=== PATIENT | male | born 1965 | race Two or more races ===

== ENCOUNTER 2025-01-14 08:22 | Emergency (ER) | payer MEDICAID, SELFPAY ==
[2025-01-14] VITALS (7 sets, daily range): BP systolic 121–211; BP diastolic 74–144; PULSE 77–94; RESP 13–99; TEMP 36.4–36.7; O2SAT 95–99; BMI 24.3
--- NOTE | 2025-01-14 08:24 | XR_ITS ---
Examination: CT brain head without contrast. 2-D sagittal coronal reconstructions Date and time of exam:January 06, 2025, 0828 hours. INDICATIONS: Focal neurologic deficit today CTDI: vol (mGy):48.7 DLP: (mGycm):980 Technique: Multiple CT axial sections of the brain have been obtained, 5 mm slice thickness. Contrast has not been administered. 2-D sagittal, coronal reconstructions have been obtained Low dose protocols were performed. One or more of the following dose reduction techniques were used; automated exposure control, adjustment of the mA and/or KV according to patient size, use of iterative reconstruction technique. Findings: No significant ventricular enlargement. 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 Fourth ventricle is midline. Cranial vault intact. Impression: Suspicious for small area of hemorrhage in the medial left temporal lobe, recommend short-term follow-up CT brain scan
--- NOTE | 2025-01-14 08:24 | EKG_ITS ---
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
--- NOTE | 2025-01-14 08:24 | XR_ITS ---
Examination: CTA carotids with intravenous contrast CTA brain, head with intravenous contrast. 2-D sagittal, coronal reconstructions. 3-D reconstructions. Exam date and time: January 06, 2025, 0833 hours INDICATIONS: Left-sided body weakness tremors, stroke alert, symptoms beginning this morning CTDI: vol (mGy) 96.2 DLP: (mGycm) 489 Technique: Multiple CTA axial brain, head carotid images post intravenous contrast injection 75 cc, [id number]. 2-D sagittal, coronal reconstructions. 3-D reconstructions, 3-D post processing including vascular maximum intensity projection images. Low dose protocols were performed. One or more of the following dose reduction techniques were used; automated exposure control, adjustment of the mA and/or KV according to patient size, use of iterative reconstruction technique. Findings: Heavy calcification right carotid bifurcation, 10-30% stenosis origin right internal carotid artery No significant left carotid artery stenoses in the neck Dominant left vertebral artery with no critical vertebral artery stenoses in the neck Intracranial vertebral arteries, basilar artery posterior cerebral branches fill with no large vessel occlusions Mild calcification juxtasellar portions internal carotid arteries M1 segments middle cerebral arteries middle cerebral artery trifurcation vessels anterior cerebral arteries fill with no large vessel occlusions IMPRESSION: No significant neck arterial stenoses No cerebral large vessel arterial occlusions or thrombus
--- NOTE | 2025-01-14 08:26 | PD.EDNEURO ---
Neuro Symptoms Deficit-RME/HPI General Chief Complaint: Neuro Symptoms/Deficit Stated Complaint: HEADACHE LEFT SIDE WEAKNESS Time Seen by Provider: 01/14/25 08:24 Source: patient Arrival date/time: 01/14/25 08:22 patient seen immediately in the ambulance bay on arrival Mode of arrival: EMS Limitations: no limitations RME / HPI RME / HPI Narrative: Patient is a 59-year-old male with a history of end-stage renal disease at dialysis morning and 30 minutes ago patient had onset of left-sided weakness in the upper and lower extremities. He has had a history of TIA in the past. He has a history of hypertension, diabetes and anemia. Onset (ago): minute(s) Last Observed Normal: 08:00 Timing confirmed by: other (Dialysis center staff) Location: left arm and left leg History of same: No Severity: mild Quality: weak Relieving factors: none Exacerbating factors: none Context: sudden onset Associated symptoms: headaches Treatments Prior to Arrival: none Related Data Allergies Allergy/AdvReac Type Severity Reaction Status Date / Time No Known Allergies Allergy Verified 01/14/25 09:06 Review of Systems Review of Systems Systems Reviewed: All systems reviewed, normal except as documented Constitutional Constitutional: Reports headache(s) and Reports weakness Eyes Eyes: Reports system reviewed and no additional complaints, except as documented ENT Ears, Nose, Mouth, and Throat: Reports system reviewed and no additional complaints, except as documented and Reports headache(s) Cardiovascular Cardiovascular: Reports system reviewed and no additional complaints, except as documented Respiratory Respiratory: Reports system reviewed and no additional complaints, except as documented Gastrointestinal Gastrointestinal: Reports system reviewed and no additional complaints, except as documented Genitourinary Genitourinary: Reports system reviewed and no additional complaints, except as documented Musculoskeletal Comments: Bruce tonic jerking in the upper and lower extremities Neurologic Neurologic: Reports headache(s) and Reports weakness Psychiatric Psychiatric: Reports system reviewed and no additional complaints, except as documented Endocrine Endocrine: Reports system reviewed and no additional complaints, except as documented Hematologic/Lymphatic Hematologic/Lymphatic: Reports system reviewed and no additional complaints, except as documented Comments: History of anemia Allergic/Immunologic Allergic/Immunologic: Reports system reviewed and no additional complaints, except as documented Past Medical History Past Medical History NEUROLOGIC: Positive Neurological Disorders and Transient Ischemic Attacks (TIA) CARDIAC: Positive Hypertension GENITOURINARY: Positive Chronic Kidney Disease and Dialysis ENDOCRINE: Positive Diabetes Mellitus Type 2 HEMATOLOGIC: Positive Anemia Surgical History OTHER SURGICAL HX: Left AV fistula Social History SMOKING STATUS: Never smoker SUBSTANCE USE: does not use ALCOHOL: Never Travel History EBOLA RISK: No ED Exam General Limitations: Present no limitations General appearance: Present alert and in no apparent distress Head Head exam: Present atraumatic Eye Eye exam: Present normal appearance, PERRL and EOMI ENT ENT exam: Present normal exam, normal oropharynx and mucous membranes moist Neck Neck exam: Present normal inspection, full ROM and trachea midline Chest Chest inspection: Present normal inspection and symmetric chest wall rise Respiratory Respiratory exam: Present normal lung sounds bilaterally Cardiovascular Cardiovascular exam: Present regular rate, normal rhythm and normal heart sounds Abdominal Exam Abdominal exam: Present soft and normal bowel sounds Extremities Exam Extremities exam: Present normal inspection and full ROM Back Exam Back exam: Present normal inspection and full ROM Neurological Exam Neurological exam: Present other (Patient with mild myotonic jerks in the upper and lower extremities. No focal deficits seen.) Psychiatric Psychiatric exam: Present normal affect and normal mood Skin Skin exam: Present warm, dry, intact and normal color Course Quality Measures Suspected type of Stroke: Hemmorrhagic Tenecteplase given: Reason(s) TPA not given: H/O intracranial hemorrhage, neoplasm, AVM, or aneurysm not given stroke Orders Category Date Time Status Bedside Blood Glucose NOW Care 01/14/25 08:24 Completed Metal Solderer NOW Care 01/14/25 08:24 Completed Continuous Pulse Oximetry NOW Care 01/14/25 08:24 Completed EKG (ED ONLY) *Do not use* NOW Care 01/14/25 08:25 Completed Insert IV NOW Care 01/14/25 08:24 Completed NIH Stroke Scale now Care 01/14/25 08:24 Completed NPO NOW Care 01/14/25 08:24 Completed Neuro Check Q15MIN Care 01/14/25 08:24 Completed Nurse Swallow Screen x1 Care 01/14/25 08:24 Completed Consult to Neurology / Tele-Neurology Routine Cons 01/14/25 08:24 Active Referral - Feather Edger Stat Cons 01/14/25 08:43 Active Transfer to another facility [Transfer/Discharge] Stat Discharge 01/14/25 08:[address] angio stroke protocol Stat Exams 01/14/25 08:[address] stroke protocol Stat Exams 01/14/25 08:24 Completed EKG (ED Only) Stat Exams 01/14/25 08:24 Draft Alcohol, Blood Medical Stat Lab 01/14/25 09:25 Completed B-Type Natriuretic Peptide Stat Lab 01/14/25 09:25 Completed CBC Stat Lab 01/14/25 08:40 Completed Comprehensive Metabolic Panel Stat Lab 01/14/25 09:25 Completed Magnesium Stat Lab 01/14/25 09:25 Completed Partial Thromboplastin Time Stat Lab 01/14/25 08:40 Completed Prothrombin Time with INR Stat Lab 01/14/25 08:40 Completed Troponin I Stat Lab 01/14/25 09:25 Completed Labetalol IV [Trandate IV] Med 01/14/25 08:49 Discontinued 20 mg IVP X1 ONE Labetalol IV [Trandate IV] Med 01/14/25 08:57 Discontinued 20 mg IVP X1 ONE Nicardipine/Ns 20Mg Ivpb [Cardene Ivpb] Med 01/14/25 08:52 Discontinued 20 mg in 200 ml IV 5 mg/hr Sodium Chloride 0.9% 1000 ml [Ns] 1,000 ml Med 01/14/25 08:30 Discontinued IV Q10H levETIRAcetam (Ped) [Keppra Inj (Ped)] 1,000 mg Med 01/14/25 08:49 Discontinued Syringe Ns (Carrier) [Carrier Syringe Ns] 1 ea IV X1 levETIRAcetam INJ [Keppra Inj] Med 01/14/25 08:57 Discontinued 1,000 mg IVP X1 ONE levETIRAcetam INJ [Keppra Inj] Med 01/14/25 09:00 Discontinued 1,000 mg IVP X1 ONE levETIRAcetam INJ [Keppra Inj] Med 01/14/25 09:20 Discontinued 1,000 mg IVP X1 ONE Oxygen Delivery NOW RT 01/14/25 08:24 Completed Vital Signs Vital signs: Vital Signs Temperature 97.5 F 01/14/25 08:22 Pulse Rate 77 01/14/25 08:22 Respiratory Rate 18 01/14/25 08:22 Blood Pressure 197/105 H 01/14/25 08:22 Pulse Oximetry (%) 95 01/14/25 08:22 Oxygen Delivery Method Nasal Cannula 01/14/25 08:22 Oxygen Flow Rate 6 01/14/25 08:22 Neuro Symptoms / Deficit MDM Narrative MDM Narrative:: Patient was at dialysis this morning and 30 minutes ago had onset of left-sided weakness. He has had a TIA in the past. He is currently with myotonic jerks or clonus which is sporadic and on both right and left sides. Patient's weakness is on the upper and lower extremity. He has no sensory deficit. Complaints of headache. Patient data External records reviewed:: None Clinical information provided by:: patient Social determinants that could affect healthcare access:: none Patient has the following chronic illnesses:: See history How is presenting disease/condition affected by chronic disease/condition?: exacerbated by Evaluation data The following diagnostics were reviewed and interpreted by me:: lab results, radiology exam(s) and EKG tracing(s) (:04 AM Sinus rhythm, rate 90, QT 374ms, pulmonary disease pattern, LVH, Q-waves in lead III and aVF) Lab and/or radiology exams considered but not ordered:: Labs radiology EKG obtained Interpretation Summary: Reviewed by me Findings: No significant ventricular enlargement. 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 Fourth ventricle is midline. Cranial vault intact. Impression: Suspicious for small area of hemorrhage in the medial left temporal lobe, recommend short-term follow-up CT brain scan Dictated By: Conrad Mariee MD Medications / Prescriptions Medications or Prescriptions considered but not ordered:: None Medication administrations:: Medication Administration History Discontinued Medications Sodium Chloride (Ns) 1,000 mls @ 60 mls/hr IV Q10H BLANCA Stop: 02/13/25 08:29 Last Infusion: 01/14/25 10:30 Dose: 0 mls/hr Documented By: Admin: 01/14/25 09:14 Dose: 60 mls/hr Documented By: Levetiracetam 1,000 mg/ Device 100 mls @ 400 mls/hr IV X1 ONE Stop: 01/14/25 08:50 Last Admin: 01/14/25 09:12 Dose: Not Given Documented By: Non-Admin Reason: Discontinued Nicardipine/Sodium Chloride (Cardene Ivpb) 20 mg in 200 mls @ 50 mls/hr IV .Q4H PRN; Protocol PRN Reason: PER PROTOCOL Stop: 02/13/25 08:51 Last Titration: 01/14/25 10:20 Dose: 3 mg/hr, 30 mls/hr Documented By: Titration: 01/14/25 09:50 Dose: 3 mg/hr, 30 mls/hr Documented By: Titration: 01/14/25 09:40 Dose: 3 mg/hr, 30 mls/hr Documented By: Titration: 01/14/25 09:35 Dose: 3 mg/hr, 30 mls/hr Documented By: Titration: 01/14/25 09:30 Dose: 3 mg/hr, 30 mls/hr Documented By: Titration: 01/14/25 09:25 Dose: 5 mg/hr, 50 mls/hr Documented By: Admin: 01/14/25 09:20 Dose: 5 mg/hr, 50 mls/hr Documented By: Labetalol HCl (Labetalol Inj 5 Mg/Ml Vial 20 Ml) 20 mg IVP X1 ONE Stop: 01/14/25 08:50 Last Admin: 01/14/25 09:13 Dose: 20 mg Documented By: Labetalol HCl (Labetalol Inj 5 Mg/Ml Vial 20 Ml) 20 mg IVP X1 ONE Stop: 01/14/25 08:58 Last Admin: 01/14/25 09:12 Dose: Not Given Documented By: Non-Admin Reason: Discontinued Levetiracetam (Levetiracetam Inj 100 Mg/Ml Vial 5ml) 1,000 mg IVP X1 ONE Stop: 01/14/25 09:01 Levetiracetam (Levetiracetam Inj 100 Mg/Ml Vial 5ml) 1,000 mg IVP X1 ONE Stop: 01/14/25 08:58 Last Admin: 01/14/25 09:12 Dose: Not Given Documented By: Non-Admin Reason: Discontinued Levetiracetam (Levetiracetam Inj 100 Mg/Ml Vial 5ml) 1,000 mg IVP X1 ONE Stop: 01/14/25 09:21 Last Admin: 01/14/25 09:32 Dose: 1,000 mg Documented By: Given Consultations Consultation(s) initiated? (list below): Yes Consultation #1 (Physician, Specialty, Details): Neuro telemetry referral Consultation #2 (Physician, Specialty, Details): I spoke with Dr. Ortega at [facility]. Discussed patients PMHx, HPI, ED course, exam findings, labs, and radiology results. Patient accepted for transfer. Diagnosis Neuro Differential Diagnosis: subarachnoid hemorrhage, cerebrovascular accident and transient cerebral ischemia Most likely diagnosis given after review of the tests above:: CVA Admission Indicated Admission indicated?: indicated Admission Request Was there a request for admission?: Yes Admission Attestation Admission request attestation: Discussed case with [] from Hospitalist service regarding admission. Discussed patients ED course, exam findings, labs, and radiology results. The Hospitalist [agrees,declines] to accept the patient for admission. Disposition Plan Disposition Plan: Admit Critical Care Time Critical Care Time Critical Care Time: Yes Total Critical Care Time (min.): 60 Attestation: The high probably ability of sudden, clinically significant deterioration in the patient's condition required the highest level of preparedness to intervene urgently. The services I provided the patient were to treat and or prevent clinically significant deterioration. Services including the following chart data review, reviewing nursing notes and old charts, documentation time, mobile sales consultant collaboration regarding findings and treatment options, medication orders and management, direct patient care vital sign assessment and ordering, interpreting and reviewing diagnostic studies and lab tests. Aggregate critical care time includes only time during which I was engaged in work directly related to the patient's care as described above whether at the bedside or elsewhere in the emergency department department and excludes all other procedures. Discharge Plan Plan Patient Disposition: [facility] Pt Being Transferred to: [facility] Service Needed for Transfer: Neurology Prescriptions/Referrals Referrals: Jean-Paul Hammond MD [Primary Care Provider] - In 1 week Problem List Clinical Impression: Intracranial hemorrhage Patient/Caregiver Discharge Instructions Print Language: English Stand Alone Forms: [facility] Award Info., Patient Portal Info Letter
[2025-01-14 08:49] LABS: Basophils # (Auto) 0.1 Thou/mm3 (0.0-0.2); Basophils % (Auto) 1 % (0-2.5); Eosinophils # (Auto) 0.3 Thou/mm3 (0.0-0.5); Eosinophils % (Auto) 4 % (0-10); Hematocrit 37.0 % (41.0-53.0); Hemoglobin 12.5 g/dL (13.5-16.0); Immature Granulocytes Auto 0.02 Thou/mm3 (0.00-0.00); Lymphocytes # (Auto) 1.5 Thou/mm3 (1.0-4.8); Lymphocytes % (Auto) 24 % (10-50); Mean Corpuscular HGB Conc 33.8 g/dl (31.0-37.0); Mean Corpuscular Hemoglobin 29.8 pg (25.0-35.0); Mean Corpuscular Volume 88 fL (80-100); Monocytes # (Auto) 0.5 Thou/mm3 (0.0-0.8); Monocytes % (Auto) 8 % (0-12); Neutrophils # (Auto) 3.9 Thou/mm3 (1.8-7.7); Neutrophils % (Auto) 63 % (37-80); Nucleated Red Blood Cell # 0.00 Thou/mm3 (0.00-0.00); Nucleated Red Blood Cell % 0 /100 WBC (0); Platelet Count 221 Thou/mm3 (140-440); RDW Standard Deviation 45.0 fL (35.1-43.9); Red Blood Count 4.20 Miln/mm3 (4.50-5.90); White Blood Count 6.3 Thou/mm3 (3.8-10.6)
--- NOTE | 2025-01-14 08:55 | PC.CM ---
Addendum entered by Karli Nelson RN 01/14/25 10:23: 1020 I faxed updated reports and I added to the transfer packet. I called [facility] and I let them know Skylife was delayed Skylife is he at this time. Addendum entered by Karli Nelson RN 01/14/25 10:00: 0950 I called [facility] to see where they were. They stated they had a small delay [place]. I let them know that patient is on a nicardipine drip. Team should be here shortly. Addendum entered by Karli Nelson RN 01/14/25 09:31: 0915 I called [facility] and they can accept patient. They will arrive at 0945. I called [facility] and canceled the fight with them. Packet completed with 1 CD. 0910 Patient has been accepted by [facility] ED to ED with accepting DR. Ortega. The number for report is [phone]. Addendum entered by Karli Nelson RN 01/14/25 09:22: 0905 I contacted [facility]. They stated they can picker feeder patient at 10:19. I let them know I will keep that time but I will try get a sooner picker feeder from [facility]. Original Note: 0850 I contacted [facility] transfer center and I faxed over information and initiated a stat transfer. I started packet and made a CD. 0843 I received a referral to transfer patient for 6m hemorrhage medial axial lobe. I spoke to Dr. Mims and he stats patient is a stat transfer and needs to be sent by air.
--- NOTE | 2025-01-14 09:04 | ESCONSULT_ITS ---
Tele Neuro Consultation Consultation Date 01/14/25 Consultation Narrative [facility] Tele[facility]urology Consult [facility] Patient Name:???GUSTAVO CAVAZOS Date of :???1965 Identification Number:??? Date of Service:???01/14/2025 08:25:38 Diagnosis:?I61.0 - Intracerebral hemorrhage in hemisphere, subcortical Impression: 59 M had dialysis and had headache , left weakness and tremors. Emergent vessel imaging pending (please f/u radiology read and contact NSG or Neuro IR with [facility]). Per NSG rec they would like Tranexamic acid (TXA). Would consider their recommendations. Not a thrombolytic candidate 2/2 ICH. Rec toxic metabolic infectious workup (U/A, COVID, chest xray, and UDS etc as per ED MD/primary team discretion), rec admission for ICH workup. SBP < 140/90, not likely a neurosurgical candidate, load of Keppra 1000 mg IV and then 500 mg bid. Repeat HCT in 24 hrs unless clinically worsens (repeat stat). Recommendation: Laboratory Studies:? INR/PT ? aPTT? CBC Medications:? Hold?antiplatelet?therapy/NSAIDS/Anticoagulation ? Load with Keppra 1gm now. ? Keppra 500mg bid. Nursing Recommendations: ? Telemetry, IV Fluids?Avoid dextrose containing fluids, Maintain euglycemia ? Head of bed 30 degrees ? Neuro checks q1-2?hrs?during ICU stay ? Once stable neuro checks q4?hrs ? keep BP less than 140/90's with goal of 130/80s Consultations: ? Need Neurosurgery consultation?STAT ? Recommend Speech therapy if failed dysphagia screen ? Physical therapy/Occupational therapy DVT Prophylaxis: ? SCDs Disposition: ? Neurology will Follow Metrics: Last Known Well: 01/14/2025 08:00:00 Dispatch Time: 01/14/2025 08:25:38 Arrival Time: 01/14/2025 08:22:00 Initial Response Time: 01/14/2025 08:37:51Symptoms: headache , left weakness and tremors.. Initial patient interaction: 01/14/2025 08:54:41 NIHSS Assessment Completed: 01/14/2025 09:02:43Patient is not a candidate for Thrombolytic. Thrombolytic Medical Decision: 01/14/2025 09:02:44Patient was not deemed candidate for Thrombolytic because of following reasons: Current intracranial hemorrhage . CT Head: I personally reviewed all the CT images that were available to me and it showed: left temporal ICH Primary Provider Notified of Diagnostic Impression and Management Plan on: 01/14/2025 09:14:07 History of Present Illness:Patient is a 59 year old Male. Patient was brought by EMS for symptoms of headache , left weakness and tremors.. 59 M had dialysis and had headache , left weakness and tremors. Never had the tremors before. 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 He says left is worse. At dialysis was placed on O2 4 L. sating was 98-100% on this. Symptoms started 5-10 min into dialysis Every few min does a whole body tremors without changes of mental status. They didn't complete his dialysis session today. LKN: 8 am Past Medical History: ?Hypertension ?Diabetes Mellitus Other PMH:? ESRD, TIA Medications: No Anticoagulant use? No Antiplatelet use Reviewed EMR for current medications Allergies:? Reviewed Social History: Smoking: No Alcohol Use: No Drug Use: No Family History: There is no family history of premature cerebrovascular disease pertinent to this consultation ROS : 14 Points Review of Systems was performed and was negative except mentioned in HPI. Past Surgical History: There Is No Surgical History Contributory To Today?s Visit Examination: BP(198/120),?Pulse(90),?Blood Glucose(182) 1A: Level of Consciousness - Alert; keenly responsive?+ 0 1B: Ask Month and Age - Could Not Answer Either Question Correctly?+ 2 1C: Blink Eyes & Squeeze Hands - Performs Both Tasks?+ 0 2: Test Horizontal Extraocular Movements - Normal?+ 0 3: Test Visual Bonner - Complete Hemianopia?+ 2 4: Test Facial Palsy (Use Grimace if Obtunded) - Minor paralysis (flat nasolabial fold, smile asymmetry)?+ 1 5A: Test Left Arm Motor Drift - Drift, but doesn't hit bed?+ 1 5B: Test Right Arm Motor Drift - Drift, but doesn't hit bed?+ 1 6A: Test Left Leg Motor Drift - Drift, hits bed?+ 2 6B: Test Right Leg Motor Drift - Drift, hits bed?+ 2 7: Test Limb Ataxia (FNF/Heel-Mcmahan) - Does Not Understand?+ 0 8: Test Sensation - Normal; No sensory loss?+ 0 9: Test Language/Aphasia - Mild-Moderate Aphasia: Some Obvious Changes, Without Significant Limitation?+ 1 10: Test Dysarthria - Normal?+ 0 11: Test Extinction/Inattention - No abnormality?+ 0 NIHSS Score:?12 ICH Score: 0 NIHSS Text :?left face droop, no BTT on the L, intermittent jerks noted throughout, answers I can't to most commands Keiko Coma Score:13-15 (0) Age >= 80:No (0) ICH volume >= 30mL:No (0) Intraventricular hemorrhage:No (0) Infratentorial origin of hemorrhage:No (0) Pre-Morbid Modified [place] Scale:1 Points = No significant disability despite symptoms; able to carry out all usual duties and activities This consult was conducted in real time using interactive audio and video technology. Patient was informed of the technology being used for this visit and agreed to proceed. Patient located in hospital and provider located at home/office setting. Due to the immediate potential for life-threatening deterioration due to underlying acute neurologic illness, I spent 38 minutes providing critical care. This time includes time for face to face visit via telemedicine, review of medical records, imaging studies and discussion of findings with providers, the patient and/or family. Dr Moe Macias [facility] For Inpatient follow-up with [facility] physician please call [facility] at . As we are not an outpatient service for any post hospital discharge needs please contact the hospital for assistance. If you have any questions for the [facility] physicians or need to reconsult for clinical or diagnostic changes please contact us via [facility] at . Signature :?Moe Macias
[2025-01-14] MEDS: LABETALOL INJ 5 MG/ML VIAL 20 ML 20 MG IVP (09:13)
[2025-01-14] MEDS: SODIUM CHLORIDE 0.9% 1000 ML 1,000 ML 60 ML IV (09:14)
[2025-01-14 09:19] LABS: INR 1.0 (0.9-1.3); Partial Thromboplastin Time 27.3 Seconds (22.0-36.0); Prothrombin Time 10.8 Seconds (9.0-12.2)
[2025-01-14] MEDS: NICARDIPINE/NS 20MG IVPB 20 MG/200 ML BAG 50 MG IV (09:20)
[2025-01-14] MEDS: levETIRAcetam INJ 100 MG/ML VIAL 5ML 1000 MG IVP (09:32)
--- NOTE | 2025-01-14 09:50 | PC.NURSE ---
SBAR REPORT GIVEN TO ANALY RUCKER FROM [facility] AT THIS TIME.
[2025-01-14 09:53] LABS: B-Type Natriuretic Peptide 283 pg/mL (0-100)
--- NOTE | 2025-01-14 10:00 | PC.NURSE ---
SPOKE TO JORDAN, PT'S SON, FOR UPDATE REGARDING PT'S POC, WITH PT'S CONSENT.
[2025-01-14 10:03] LABS: Alanine Aminotransferase 24 U/L (10-49); Albumin, Serum 4.2 gm/dL (3.4-4.8); Albumin/Globulin Ratio 1.6 (1.2-2.2); Alcohol, Blood Medical < 10.0 mg/dL (0-10.0); Alkaline Phosphatase 154 U/L (46-116); Anion Gap 12 (7-16); Aspartate Amino Transferase 20 U/L (0-34); BUN/Creatinine Ratio 5 Ratio (12-20); Bilirubin,Total 0.2 mg/dL (0.3-1.2); Blood Urea Nitrogen 24 mg/dL (9-23); Calcium 9.6 mg/dL (8.3-10.6); Calcium (Corrected) 9.6 mg/dL (8.5-10.1); Carbon Dioxide 30.4 mMol/L (20.0-31.0); Chloride 93 mMol/L (98-107); Creatinine (Component) 4.8 mg/dL (0.6-1.3); Estimated Creatinine Clearance 14.2 mL/min (>60); Globulin 2.7 gm/dL (2.3-3.5); Glucose 194 mg/dL (74-106); Magnesium 2.1 mg/dL (1.6-2.6); Osmolality,Calculated 279 (275-295); Potassium 4.4 mMol/L (3.4-5.1); Sodium 135 mMol/L (136-145); Total Protein 6.9 gm/dL (5.7-8.2); Troponin I < 0.020 ng/mL (0.0-0.045); eGFR 13 See Note
--- NOTE | 2025-01-14 10:26 | PC.NURSE ---
SBAR REPORT GIVEN TO EBONIE JUAN FLIGHT NURSE AT BEDSIDE AT THIS TIME.
== END 2025-01-14 10:35 | disposition short-term general hospital (02) ==
LOC: SERX 10:11
PROVIDERS: Emergency Provider Family Medicine; PCP Family Medicine
DX: I62.9 Nontraumatic intracranial hemorrhage, unspecified (principal); R29.712 NIHSS score 12; R94.31 Abnormal electrocardiogram [ECG] [EKG]; I12.0 Hypertensive chronic kidney disease with stage 5 chronic kidney disease or end stage renal disease; N18.6 End stage renal disease; E11.22 Type 2 diabetes mellitus with diabetic chronic kidney disease; Z99.2 Dependence on renal dialysis; Z86.73 Personal history of transient ischemic attack (TIA), and cerebral infarction without residual deficits; Z75.1 Person awaiting admission to adequate facility elsewhere
CPT/HCPCS: 36415; 70450; 70496; 70498; 80053; 80307; 80320; 81001; 83735; 83880; 84484; 85025; 85610; 85730; 87086; 93005; 96365; 96375; 99284; A4649; J1953; J2404; J3490; J7030; Q9967; G0480; J1920